=== PATIENT | male | born 1970 | race American Indian/Alaskan Native ===

== ENCOUNTER 2016-12-02 22:22 | Emergency (ER) | payer OTHER ==
[2016-12-02 22:35] VITALS: BP 154/112
--- NOTE | 2016-12-03 00:20 | Emergency Department Report ---
ED ENT HPI - General Chief complaint: Dental/Oral Stated complaint: TOOTH PAIN Time Seen by Provider: 12/03/16 00:19 Source: patient Mode of arrival: Ambulatory Limitations: No Limitations - History of Present Illness Initial comments: 46-year-old male past medical history facial abscesses presents with complaint of abscess to his right upper lip region. Patient states it has been getting swollen for 2 days. Denies any spontaneous. No drainage. States he has had facial abscess and is exact region before. Denies any fever or chills denies any headaches. States that when he moves his right upper lip he experiences discomfort and pain MD complaint: tooth pain Onset/Timin -: days(s) Location: upper lip Severity: moderate Severity scale (0 -10): 7 Quality: aching Consistency: intermittent Improves with: none Worsens with: eating - Related Data Previous Rx's Medication Instructions Recorded Last Taken Type Acetaminophen/Codeine [Tylenol 1 tab PO Q6H PRN #14 tab 12/03/16 Unknown Rx /Codeine # 3 tab] Chlorhexidine Mouthwash [Peridex] 118 ml MM BID #1 bottle 12/03/16 Unknown Rx Clindamycin [Clindamycin CAP] 300 mg PO Q6H #28 capsule 12/03/16 Unknown Rx Ibuprofen [Motrin] 800 mg PO Q8HR PRN #30 tablet 12/03/16 Unknown Rx Allergies Allergy/AdvReac Type Severity Reaction Status Date / Time No Known Allergies Allergy Verified 12/02/16 22:31 ED Dental HPI - General Chief complaint: Dental/Oral Stated complaint: TOOTH PAIN Time Seen by Provider: 12/03/16 00:19 Source: patient Mode of arrival: Ambulatory Limitations: No Limitations - Related Data Previous Rx's Medication Instructions Recorded Last Taken Type Acetaminophen/Codeine [Tylenol 1 tab PO Q6H PRN #14 tab 12/03/16 Unknown Rx /Codeine # 3 tab] Chlorhexidine Mouthwash [Peridex] 118 ml MM BID #1 bottle 12/03/16 Unknown Rx Clindamycin [Clindamycin CAP] 300 mg PO Q6H #28 capsule 12/03/16 Unknown Rx Ibuprofen [Motrin] 800 mg PO Q8HR PRN #30 tablet 12/03/16 Unknown Rx Allergies Allergy/AdvReac Type Severity Reaction Status Date / Time No Known Allergies Allergy Verified 12/02/16 22:31 ED Review of Systems ROS: Stated complaint: TOOTH PAIN Other details as noted in HPI Constitutional: denies: chills, fever Eyes: denies: eye pain, eye discharge, vision change ENT: as per HPI (visible abscess above right upper lip). denies: ear pain, throat pain Respiratory: denies: cough, shortness of breath, wheezing Cardiovascular: denies: chest pain, palpitations Endocrine: no symptoms reported Gastrointestinal: denies: abdominal pain, nausea, diarrhea Genitourinary: denies: urgency, dysuria Musculoskeletal: denies: back pain, joint swelling, arthralgia Skin: denies: rash, lesions Neurological: denies: headache, weakness, paresthesias Psychiatric: denies: anxiety, depression Hematological/Lymphatic: denies: easy bleeding, easy bruising ED Past Medical Hx - Past Medical History Previous Medical History?: No - Surgical History Past Surgical History?: No - Social History Smoking Status: Current Every Day Smoker Substance Use Type: Alcohol - Medications Home Medications: Home Medications Medication Instructions Recorded Confirmed Last Taken Type Acetaminophen/Codeine [Tylenol 1 tab PO Q6H PRN #14 tab 12/03/16 Unknown Rx /Codeine # 3 tab] Chlorhexidine Mouthwash [Peridex] 118 ml MM BID #1 bottle 12/03/16 Unknown Rx Clindamycin [Clindamycin CAP] 300 mg PO Q6H #28 capsule 12/03/16 Unknown Rx Ibuprofen [Motrin] 800 mg PO Q8HR PRN #30 tablet 12/03/16 Unknown Rx ED Physical Exam - General Limitations: No Limitations General appearance: alert, in no apparent distress - Head Head exam: Present: atraumatic, normocephalic - Expanded Head Exam Expanded 1 - Small 2 cm abscess in this region with central induration - Eye Eye exam: Present: normal appearance, PERRL, EOMI - ENT ENT exam: Present: mucous membranes moist, other - Neck Neck exam: Present: normal inspection, full ROM - Respiratory Respiratory exam: Present: normal lung sounds bilaterally. Absent: respiratory distress - Cardiovascular Cardiovascular Exam: Present: regular rate, normal rhythm. Absent: systolic murmur, diastolic murmur, rubs, gallop - GI/Abdominal GI/Abdominal exam: Present: soft, normal bowel sounds - Rectal Rectal exam: Present: deferred - Extremities Exam Extremities exam: Present: normal inspection - Back Exam Back exam: Present: normal inspection - Neurological Exam Neurological exam: Present: alert, oriented X3 - Psychiatric Psychiatric exam: Present: normal affect, normal mood - Skin Skin exam: Present: warm, dry, intact, normal color. Absent: rash ED Course Vital Signs 12/02/16 12/03/16 12/03/16 22:31 00:50 01:40 Temperature 98.3 F Pulse Rate 105 H 90 Respiratory 20 18 Rate Blood Pressure 154/112 O2 Sat by Pulse 100 Oximetry - I & D Right Face Type of Procedure: Simple Site: above right upper lip canthus Blade Size: 11 I & D Procedure: betadine prep Progress: Area infiltrated with lidocaine 1% with epinephrine, good local anesthesia achieved, small 0.5 cm incision made directly over central site of induration and fluctuance, 2-3 mL of purulent material drained, and culture sent, minimal bleeding, procedure tolerated well. No packing placed ED Medical Decision Making - Medical Decision Making A/P: Facial abscess 1- abscess incised and drained, wound culture sent. No extension of abscess into oral cavity on clinical exam. Good decompression achieved with small stab incision, moderate amount of pus drainage. 2- clindamycin 4 times a day seven-day course 3- Motrin 600 when necessary 4- I advised patient to return to the ED if abscess re-accumulates he develops fever chills nausea vomiting headache or dizziness Critical care attestation.: If time is entered above; I have spent that time in minutes in the direct care of this critically ill patient, excluding procedure time. ED Disposition Clinical Impression: Facial abscess Disposition: DC-01 TO HOME OR SELFCARE Is pt being admited?: No Does the pt Need Aspirin: No Condition: Stable Instructions: Abscess Incision and Drainage (ED), Abscess (ED) Additional Instructions: I advised patient to return if his symptoms worsen Prescriptions: Acetaminophen/Codeine [Tylenol /Codeine # 3 tab] 1 tab PO Q6H PRN #14 tab PRN Reason: Pain Chlorhexidine Mouthwash [Peridex] 118 ml MM BID #1 bottle Clindamycin [Clindamycin CAP] 300 mg PO Q6H #28 capsule Ibuprofen [Motrin] 800 mg PO Q8HR PRN #30 tablet PRN Reason: Toothache Referrals: PRIMARY CARE, [Primary Care Provider] - 3-5 Days [facility] [Outside] - 3-5 Days Forms: Work/School Release Form(ED) Time of Disposition: 00:21
[2016-12-03] MEDS ORDERED: NORCO 5/325 PO ONE (00:31)
[2016-12-03] MEDS ORDERED: XYLOCAINE 2%/EPI 1:100,000 INFILTRATI ONE ×2 (00:41→01:08)
== END 2016-12-03 01:40 | disposition home or self-care (01) ==
LOC: ED 22:22
DX: L02.01 Cutaneous abscess of face (principal); F17.200 Nicotine dependence, unspecified, uncomplicated
CPT/HCPCS: 87116; 99282